=== PATIENT | female | born 1985 | race Two or more races ===

== ENCOUNTER 2018-03-03 06:43 | Outpatient (CLI) | payer OTHER | END 2018-03-03 06:50 | disposition home or self-care (01) | LOC: LAB 06:43 | DX: R19.00 Intra-abdominal and pelvic swelling, mass and lump, unspecified site (principal); K42.9 Umbilical hernia without obstruction or gangrene; B34.9 Viral infection, unspecified ==

== ENCOUNTER 2018-03-04 08:33 | Outpatient (CLI) | payer OTHER | END 2018-03-04 14:57 | disposition home or self-care (01) | LOC: TOM 08:33 | DX: R19.00 Intra-abdominal and pelvic swelling, mass and lump, unspecified site (principal); K42.9 Umbilical hernia without obstruction or gangrene ==